=== PATIENT | female | born 2000 | race Caucasian/White ===

== ENCOUNTER 2023-04-16 13:02 | Emergency (ER) | payer OTHER ==
[2023-04-16 13:41] LABS: APPEARANCE,URINE SLT CLOUDY; COLOR,URINE YELLOW; GLUCOSE,URINE NEGATIVE (NEGATIVE); KETONES,URINE 15 mg/dL (NEGATIVE); LEUKOCYTE ESTERASE,URINE NEGATIVE (NEGATIVE); NITRITE,URINE NEGATIVE (NEGATIVE); OCCULT BLOOD,URINE NEGATIVE (NEGATIVE); PROTEIN,URINE TRACE mg/dL (NEGATIVE)
[2023-04-16] MEDS ORDERED: Sodium Chloride 0.9% 1,000 ML IV ONE (13:41)
[2023-04-16] MEDS ORDERED: Ondansetron 4 MG/2 ML SDV IVPUSH ONE (13:41)
[2023-04-16 13:45] LABS: BILIRUBIN,URINE SMALL (NEGATIVE)
[2023-04-16 13:50] LABS: RBC,URINE 0-1 (0-2/HPF)
[2023-04-16 13:51] LABS: BACTERIA,URINE 2+ (NEGATIVE); EPITHELIAL CELLS,URINE FEW (NONE-FEW)
[2023-04-16 13:56] LABS: BASOPHILS ABSOLUTE AUTO 0.06 K/uL (0.00-0.20); BASOPHILS PERCENT AUTO 0.6 % (0.0-1.0); EOSINOPHILS ABSOLUTE AUTO 0.08 K/uL (0.00-0.45); EOSINOPHILS PERCENT AUTO 0.8 % (0.0-6.0); HEMOGLOBIN 14.4 g/dL (12.0-16.0); IMMATURE GRAN ABSOLUTE AUTO 0.02 K/uL (0.00-0.05); IMMATURE GRAN PERCENT AUTO 0.2 % (0.0-0.4); LYMPHOCYTES ABSOLUTE AUTO 1.74 K/uL (1.00-4.80); LYMPHOCYTES PERCENT AUTO 18.3 % (24.0-44.0); MEAN CORPUSCULAR HEMOGLOBIN 29.7 pg (28.0-32.0); MEAN CORPUSCULAR HGB CONC 34.3 g/dL (32.0-36.0); MEAN CORPUSCULAR VOLUME 86.6 fL (83.0-99.0); MEAN PLATELET VOLUME 9.4 fL (9.4-12.3); MONOCYTES ABSOLUTE AUTO 0.88 K/uL (0.00-0.80); MONOCYTES PERCENT AUTO 9.3 % (0.0-8.0); NEUTROPHILS ABSOLUTE AUTO 6.72 K/uL (1.80-7.70); NEUTROPHILS PERCENT AUTO 70.8 % (41.0-71.0); PLATELET COUNT,PLT 288 K/uL (150-400); RED BLOOD CELL COUNT 4.85 M/uL (4.10-5.30)
[2023-04-16 14:30] LABS: A/G RATIO 1.4 (0.9-1.6); ALBUMIN 4.5 g/dL (3.4-5.0); BILIRUBIN TOTAL 0.7 mg/dL (0.2-1.0); CALCIUM 9.6 mg/dL (8.5-10.1); CARBON DIOXIDE,CO2 25.4 mmol/L (21.0-32.0); CREATININE 1.2 mg/dL (0.6-1.0); EST CRCL DRUG DOSING (CG) 59.97 mL/min; MAGNESIUM 1.8 mg/dL (1.8-2.4); POTASSIUM,K 4.2 mmol/L (3.5-5.1); PROTEIN TOTAL,TP 7.8 g/dL (6.4-8.2)
[2023-04-16 14:31] LABS: CORONAVIRUS COVID-19 NAA NEGATIVE (NEGATIVE); INFLUENZA A NAA NEGATIVE (NEGATIVE); INFLUENZA B NAA NEGATIVE (NEGATIVE)
== END 2023-04-16 15:16 | disposition home or self-care (01) ==
LOC: MW.ED 13:02
DX: R11.2 Nausea with vomiting, unspecified (principal); Z20.822 Contact with and (suspected) exposure to COVID-19; Z86.16 Personal history of COVID-19; Z79.899 Other long term (current) drug therapy
CPT/HCPCS: 0240U; 36415; 80053; 81001; 81025; 83690; 83735; 85025; 96361; 96374; 99284; J2405; J7030

== ENCOUNTER 2023-05-24 09:05 | Emergency (ER) | payer OTHER ==
[2023-05-24 11:51] LABS: CORONAVIRUS COVID-19 NAA NEGATIVE (NEGATIVE); INFLUENZA A NAA NEGATIVE (NEGATIVE); INFLUENZA B NAA NEGATIVE (NEGATIVE); RESPIRATORY SYNCYTIAL VIR NAA NEGATIVE (NEGATIVE)
== END 2023-05-24 12:19 | disposition home or self-care (01) ==
LOC: MW.ED 09:05
DX: J06.9 Acute upper respiratory infection, unspecified (principal); Z86.16 Personal history of COVID-19
CPT/HCPCS: 0241U; 99283

== ENCOUNTER 2023-08-02 11:09 | Emergency (ER) | payer OTHER ==
[2023-08-02] MEDS: Ibuprofen 400 MG Tab PO ONE (12:12)
[2023-08-02] MEDS: predniSONE 20 MG Tab PO ONE (12:12)
[2023-08-02] MEDS: Acetaminophen 500 MG Tab PO ONE (12:12)
[2023-08-02] MEDS: Albuterol/Ipratropium 3.0-0.5 MG/3 ML Neb Soln NEB ONE (12:12)
[2023-08-02 13:23] LABS: CORONAVIRUS COVID-19 NAA POSITIVE (NEGATIVE); INFLUENZA A NAA NEGATIVE (NEGATIVE); INFLUENZA B NAA NEGATIVE (NEGATIVE); RESPIRATORY SYNCYTIAL VIR NAA NEGATIVE (NEGATIVE)
== END 2023-08-02 14:07 | disposition home or self-care (01) ==
LOC: MW.ED 11:09
DX: U07.1 COVID-19 (principal); Z79.899 Other long term (current) drug therapy
CPT/HCPCS: 0241U; 71046; 99284; A9270; 71045; 71045-26; 93010; J7620-GY

== ENCOUNTER 2023-08-09 07:05 | Emergency (ER) | payer OTHER ==
[2023-08-09] MEDS: Ibuprofen 600 MG Tab PO ONE (07:45)
== END 2023-08-09 08:09 | disposition home or self-care (01) ==
LOC: MW.ED 07:05
DX: H66.91 Otitis media, unspecified, right ear (principal); Z79.899 Other long term (current) drug therapy
CPT/HCPCS: 99282; A9270; 99283

== ENCOUNTER 2023-10-19 03:40 | Emergency (ER) | payer OTHER ==
[2023-10-19 04:42] LABS: CORONAVIRUS COVID-19 NAA NEGATIVE (NEGATIVE); INFLUENZA A NAA NEGATIVE (NEGATIVE); INFLUENZA B NAA NEGATIVE (NEGATIVE)
[2023-10-19] MEDS: Acetaminophen 500 MG Tab PO ONE (04:42)
[2023-10-19] MEDS: Lidocaine 1% PF 2 ML SDV ONE (04:56)
== END 2023-10-19 05:13 | disposition home or self-care (01) ==
LOC: MW.ED 03:40
DX: H92.01 Otalgia, right ear (principal); Z79.899 Other long term (current) drug therapy
CPT/HCPCS: 0240U; 99283; A9270; J3490

== ENCOUNTER 2024-01-09 07:09 | Emergency (ER) | payer SELFPAY ==
[2024-01-09] MEDS: Acetaminophen 500 MG Tab PO ONE (07:38)
[2024-01-09] MEDS: Ondansetron 4 MG Tab.DIS PO ONE (07:38)
[2024-01-09] MEDS: Ibuprofen 400 MG Tab PO ONE (07:38)
[2024-01-09 08:12] LABS: CORONAVIRUS COVID-19 NAA NEGATIVE (NEGATIVE); INFLUENZA A NAA NEGATIVE (NEGATIVE); INFLUENZA B NAA NEGATIVE (NEGATIVE); RESPIRATORY SYNCYTIAL VIR NAA NEGATIVE (NEGATIVE)
== END 2024-01-09 08:35 | disposition home or self-care (01) ==
LOC: MW.ED 07:09
DX: J06.9 Acute upper respiratory infection, unspecified (principal); B97.89 Other viral agents as the cause of diseases classified elsewhere; Z75.8 Other problems related to medical facilities and other health care; Z79.899 Other long term (current) drug therapy
CPT/HCPCS: 0241U; 99283; A9270

== ENCOUNTER 2024-01-11 10:19 | Emergency (ER) | payer OTHER ==
[2024-01-11] MEDS: LORazepam 1 MG Tab PO ONE (10:38)
== END 2024-01-11 11:25 | disposition home or self-care (01) ==
LOC: MW.ED 10:19
DX: L29.9 Pruritus, unspecified (principal); Z76.0 Encounter for issue of repeat prescription; Z79.899 Other long term (current) drug therapy
CPT/HCPCS: 99283; A9270

== ENCOUNTER 2024-01-19 17:23 | Emergency (ER) | payer OTHER ==
[2024-01-19 20:03] LABS: CORONAVIRUS COVID-19 NAA NEGATIVE (NEGATIVE); INFLUENZA A NAA NEGATIVE (NEGATIVE); INFLUENZA B NAA NEGATIVE (NEGATIVE); RESPIRATORY SYNCYTIAL VIR NAA NEGATIVE (NEGATIVE)
[2024-01-19] MEDS: Ibuprofen 400 MG Tab PO ONE (20:16)
[2024-01-19] MEDS: Acetaminophen 500 MG Tab PO ONE (20:17)
== END 2024-01-19 20:44 | disposition home or self-care (01) ==
LOC: MW.ED 17:23
DX: J02.8 Acute pharyngitis due to other specified organisms (principal); Z79.899 Other long term (current) drug therapy; Z75.8 Other problems related to medical facilities and other health care
CPT/HCPCS: 0241U; 87651; 99283; A9270